=== PATIENT | female | born 1980 | race Caucasian/White ===

== ENCOUNTER → 2018-05-29 | Outpatient (CLI) | payer OTHER | LOC: FIMAGING 15:50 | PROVIDERS: ATTEND Internal Medicine | DX: R59.1 Generalized enlarged lymph nodes (principal); R61 Generalized hyperhidrosis ==

== ENCOUNTER 2018-05-31 12:31 | Emergency (ER) | payer OTHER ==
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
[2018-05-31 13:23] LABS: PLATELET COUNT 163 10^3/uL (150-400)
[2018-05-31] MEDS ORDERED: IOPAMIDOL (ISOVUE 370) 100 ML BTL IV ONE (14:15)
[2018-05-31 14:20] VITALS: BP 101/61
[2018-05-31] MEDS ORDERED: ACETAMINOPHEN 500 MG TAB PO ONE (14:25)
== END 2018-05-31 15:23 | disposition home or self-care (01) ==
DX: R22.1 Localized swelling, mass and lump, neck (principal); J02.9 Acute pharyngitis, unspecified; H92.09 Otalgia, unspecified ear; Z87.891 Personal history of nicotine dependence
CPT/HCPCS: 86664-90; 86665-90; Q9967

== ENCOUNTER 2018-08-01 16:19 | Emergency (ER) | payer OTHER ==
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
[2018-08-01 21:36] VITALS: BP 119/69
== END 2018-08-01 21:34 | disposition home or self-care (01) ==
PROC: 0HQQXZZ Repair Finger Nail, External Approach (ICD-10-PCS; principal; 2018-08-01)
PROC: 0HQGXZZ Repair Left Hand Skin, External Approach (ICD-10-PCS; 2018-08-01)
DX: S61.313A Laceration without foreign body of left middle finger with damage to nail, initial encounter (principal); S61.215A Laceration without foreign body of left ring finger without damage to nail, initial encounter; W23.0XXA Caught, crushed, jammed, or pinched between moving objects, initial encounter; Y93.89 Activity, other specified

== ENCOUNTER 2018-08-05 14:34 | Emergency (ER) | payer OTHER ==
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
[2018-08-05] MEDS ORDERED: ACETAMINOPHEN 325 MG TAB PO ONE (14:45)
[2018-08-05] MEDS ORDERED: CYCLOBENZAPRINE 10 MG TAB PO ONE (17:12)
[2018-08-05] MEDS ORDERED: OXYCODONE/APAP 5/325 TAB PO ONE (17:12)
[2018-08-05 17:53] VITALS: BP 127/90
--- NOTE | 2018-08-05 18:12 | ASMTCAGE ---
CAGE Do you feel you ought to Answers: No cut down on your drinking or drug use? Do people annoy you by Answers: No criticizing your drinking or drug use? Do you feel guilty about Answers: No your drinking or drug use? 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 Additional Comments CAGE not applicable. Pt denies any drug and/or alcohol use secondary to prior head injuries. Date Signed: 08/05/2018 06:11 PM Electronically Signed By:Viola Hampton RN
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
== END 2018-08-05 17:53 | disposition home or self-care (01) ==
LOC: EDUNIT#
DX: S16.1XXA Strain of muscle, fascia and tendon at neck level, initial encounter (principal); S09.90XA Unspecified injury of head, initial encounter; S43.402A Unspecified sprain of left shoulder joint, initial encounter; S83.92XA Sprain of unspecified site of left knee, initial encounter; S80.212A Abrasion, left knee, initial encounter; V49.49XA Driver injured in collision with other motor vehicles in traffic accident, initial encounter; Y92.410 Unspecified street and highway as the place of occurrence of the external cause; Y99.9 Unspecified external cause status; Z87.891 Personal history of nicotine dependence; Z87.820 Personal history of traumatic brain injury; Z90.710 Acquired absence of both cervix and uterus